=== PATIENT | female | born 1950 | race Caucasian/White ===

== ENCOUNTER 2016-10-13 10:02 | Emergency (ER) | payer MEDICARE, OTHER ==
[~2016-10-13] VITALS: Ht 165.1 cm; Wt 70.0 kg
[~2016-10-13 10:02] MED LIST: ALBU0.086 NEB; AMLO5TAB96 PO; ATOR20TA42 PO; CALC600T22 PO; CARB200T14 PO; CLON0.5T PO; CYAN100025 SQ; DIOV320T PO; FISH1000 PO; FISH100020 PO; HYDR200T42 PO; IMIT100T PO; LATA0.00 OP; LEVO150T7 PO; LOTE0.5S OU; MAGN250T19 PO; METF-324 PO; METO25 PO; NEUR600T PO; NORC7.5T PO; OMEP20TA PO; ONDA1TAB16 PO; PRED5PAK PO; REST0.05 OU; SERT-129 PO; SUMA6P SQ; SYMB160A INH; TIOT18I INH; TRAD5TAB PO; UMEC1INH; VENTAER INH; ZOLE5INJ
[2016-10-13 10:06] VITALS: BP 200/100; PULSE 85; RESP 17; TEMP 98; O2SAT 99
[2016-10-13] MEDS ORDERED: MORPHINE SULFATE 4 MG/ML INJ IM ONE (10:30)
--- NOTE | 2016-10-13 10:33 | PD ---
HPI Chief Complaint: Fall Time Seen by Provider: 10:22 Travel History International Travel<30 days: No Contact w/Intl Traveler<30days: No Traveled to known affect area: No History of Present Illness HPI 66 y/o female states she got tripped up on her bathtub edge and fell landing on her right shoulder and knee. She states she hit her head and is not sure if she blacked out. She states she's also having pain to her left knee in addition to the areas that she hit. Pain is pressure. Severity is moderate. Pain is worse with movement. She denies other concurrent complaints. This happened shortly prior to arrival. 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 Last one Jan 2011) Psychiatric: Yes Reproductive: No Respiratory: Yes Integumentary: No Migraines: Yes Myocardial Infarction: No Radiation Therapy: No Renal Failure: No Seizures: Yes Sickle Cell Disease: No Sleep Apnea: No Thyroid Disease: No Ulcer: Yes PNEUMOCCOCAL Vaccine (Year): 2 ?: Not Menopausal: Yes : 4 Para: 1 Miscarriage: 3 : 0 Ovarian Cysts: Yes Past Surgical History Abdominal Surgery: Yes (EXPLORATORY LAP X2) AICD: No Appendectomy: Yes Arteriovenous Shunt: No Body Medical Devices: Pins/plate in neck, pacemaker/cardiac loop Cardiac Surgery: Yes (HEART LOOP) Cholecystectomy: No Coronary Artery Bypass Graft: No Ear Surgery: Yes Endocrine Surgery: No Eye Surgery: No Genitourinary Surgery: Yes (KIDNEY STONE REMOVED) Gynecologic Surgery: No Insulin Pump: No Joint Replacement: No Neurologic Surgery: Yes Oral Surgery: No Pacemaker: No Thoracic Surgery: No Other Surgery: Yes (LOOP RECORDER , RIGHT WRIST, LUNG BIOSPY) Family History Family Myocardial Infarction: Yes Social History Alcohol Use: No Tobacco Use: No Substance Use: No (DENIES) Allergies-Medications (Allergen,Severity, Reaction): Coded Allergies: aspirin (Unverified Allergy, Severe, ITCH, 10/09/16) ciprofloxacin (Unverified Allergy, Severe, STOMACH PROBLEMS, 10/09/16) methotrexate (Unverified Allergy, Severe, "DESTROYED IMMUNE SYSTEM", ) norfloxacin (Unverified Allergy, Severe, HEADACHE, NAUSEA, DIARRHEA, ) penicillin G (Unverified Allergy, Severe, RASH, ITCH, 10/09/16) metronidazole (Unverified Adverse Reaction, Mild, 10/09/16) GI ISSUES Reported Meds & Prescriptions Reported Meds & Active Scripts Active Reported Ventolin Hfa 18 GM Inh (Albuterol Sulfate) 90 Mcg/Act Aer 1-2 Puff INH Q4-6H PRN Diovan (Valsartan) 160 Mg Tab 160 Mg PO DAILY Tradjenta (Linagliptin) 5 Mg Tab 5 Mg PO DAILY Symbicort Inh (Budesonide/Formoterol Fumarate) 160-4.5 Mcg/Act Aero 2 Puff INH Q12HR Imitrex Inj (Sumatriptan Succinate) 6 Mg/0.5 Ml Inj 6 Mg SQ AT ONSET PRN May repeat dose in 2 hour if needed. Max of 2 injections per day, no more than 2 days per week Imitrex (Sumatriptan Succinate) 100 Mg Tab 100 Mg PO AT ONSET PRN If a satisfactory response has not been obtained in 2 hours, a second dose may be administered Zoloft (Sertraline HCl) 100 Mg Tab 150 Mg PO DAILY Restasis Opth 0.05% (Cyclosporine Opth 0.05%) 0.05% Emul 1 Drop EACH EYE BID Prednisone 5 Mg Tab 5 Mg PO DAILY Zofran Odt (Ondansetron Odt) 4 Mg Tab 4 Mg SL Q6HR Omeprazole 20 Mg Tab 20 Mg PO DAILY Metoprolol Tartrate 25 Mg Tab 25 Mg PO BID Metformin (Metformin HCl) 1,000 Mg Tab 1,000 Mg PO BID With meals Levothyroxine (Levothyroxine Sodium) 150 Mcg Tab 150 Mcg PO DAILY Xalatan Opth Drops (Latanoprost) 0.005% Drops 1 Drop EACH EYE HS [Iron Complex] 1 Cap PO WEEKLY Incruse Ellipta Inh (Umeclidinium [place] Inh) 0.0625 Mg/Act Inh 1 Puff INH DAILY Plaquenil (Hydroxychloroquine Sulfate) 200 Mg Tab 200 Mg PO BID Take with food [place] (Hydrocodone-Acetaminophen) 7.5-325 mg Tab 1 Tab PO Q6H PRN Gabapentin 600 Mg Tab 900 Mg PO BID Fish Oil 1000 mg ([place]-3 Fatty Acids) 1 Cap Cap 1,000 Mg PO Q12HR Cyanocobalamin Inj (Cyanocobalamin) 1,000 Mcg/Ml Inj 1,000 Mcg IM MONTHLY Tegretol (Carbamazepine) 200 Mg Tab 300 Mg PO BID Lipitor (Atorvastatin Calcium) 40 Mg Tab 40 Mg PO DAILY Norvasc (Amlodipine Besylate) 10 Mg Tab 10 Mg PO DAILY Albuterol Neb (Albuterol Sulfate) 2.5 Mg/3 Ml Neb 2.5 Mg NEB Q4-6H PRN While awake Review of Systems Except as stated in HPI: all other systems reviewed are Neg Physical Exam Narrative General: 66 y/o patient in no apparent distress Skin: trauma noted to bilateral knees with abrasions Eyes: Pupils equal ENT: no septal hematoma NECK: no pain with palpation in midline, nexus criteria negative Cardiovascular: Regular rate and rhythm Respiratory: Normal respiratory effort noted, clear to auscultation bilaterally Abdomen: soft, nontender, nondistended Back: No step-offs, midline spine nontender with palpation Extremities: Pain with palpation of right upper arm, bilateral knees, no lacerations over, neurovascularly intact, no pain with palpation of other joints Neuro: awake, alert, sensation and motor grossly intact Data Data Last Documented VS Vital Signs Date Time Temp Pulse Resp B/P Pulse Ox O2 Delivery O2 Flow Rate FiO2 10/13/16 10:06 98.0 85 17 200/100 99 Orders Humerus (Min 2vws) (10/13/16 10:26) Knee, Complete (4vws) (10/13/16 10:26) Ct Brain W/O Iv Contrast(Rout) (10/13/16 ) Knee, Complete (4vws) (10/13/16 ) Morphine Inj (Morphine Inj) (10/13/16 10:30) Ct Cerv Spine W/O Contrast (10/13/16 ) Shoulder, Complete (>2vws) (10/13/16 ) MDM Medical Decision Making Medical Screen Exam Complete: Yes Emergency Medical Condition: Yes Medical Record Reviewed: Yes (past history confirmed) Interpretation(s) Last 24 hours Impressions Knee X-Ray 10/13/16 1026 Signed Impressions: Service Date/Time: Thursday, October 13, 2016 10:51 - CONCLUSION: Mild osteoarthritis. Questionable incomplete fracture proximal fibula. Gerson Corral MD Humerus X-Ray 10/13/16 1026 Signed Impressions: Service Date/Time: Thursday, October 13, 2016 10:43 - CONCLUSION: No acute fracture. Gerson Corral MD Knee X-Ray 10/13/16 0000 Signed Impressions: Service Date/Time: Thursday, October 13, 2016 10:48 - CONCLUSION: Mild osteoarthritis without fracture. Gerson Corral MD Cervical Spine CT 10/13/16 0000 Signed Impressions: Service Date/Time: Thursday, October 13, 2016 11:53 - CONCLUSION: Anterior fusion. No fracture or fracture. Minimal anterolisthesis C5 on C6. Diffuse mild degenerative changes. Gerson Corral MD Differential Diagnosis Fracture, strain, bleed Narrative Course Will check trauma imaging and dose with morphine and reevaluate ed workup without fracture, Patient denies any new complaints and states that they are feeling better. Patient happy with care, all questions answered. Patient knows that follow up is incumbent on them and to return to the emergency room immediately if new or worsening symptoms develop. Patient given strict return precautions, vitals reviewed and are normal, agrees to further workup as an outpatient. Diagnosis Primary Impression: Shoulder pain, acute Qualified Code: M25.511 - Acute pain of right shoulder Additional Impressions: Knee pain Qualified Code: M25.561 - Acute pain of both knees Fall Qualified Code: W19.XXXA - Fall, initial encounter Patient Instructions: General Instructions Additional Instructions: return as needed, follow with primary saturday, take your home pain medication as needed Med/Other Pt SpecificInfo: No Change to Meds Disposition: DISCHARGE HOME Condition: Stable Dona Lieberman MD Oct 13, 2016 10:33
--- NOTE | 2016-10-13 11:09 | RADRPT ---
EXAM DATE/TIME: 10/13/2016 10:43 [facility] COMPARISON: No previous studies available for comparison. INDICATIONS : Right arm pain after fall two days ago. MEDICAL HISTORY : Rheumatoid arthritis. SURGICAL HISTORY : None. ENCOUNTER: Initial ACUITY: 2 days PAIN SCORE: 5/10 LOCATION: Right humerus. FINDINGS: Two view examination of the right humerus demonstrates no evidence of fracture or dislocation. Bony mineralization is normal. The soft tissue structures are intact. CONCLUSION: No acute fracture. Gerson Corral MD on October 13, 2016 at 11:08 Board Certified Radiologist. This report was verified electronically.
--- NOTE | 2016-10-13 11:10 | RADRPT ---
EXAM DATE/TIME: 10/13/2016 10:48 [facility] COMPARISON: No previous studies available for comparison. INDICATIONS : Right knee pain after fall two days ago. MEDICAL HISTORY : Rheumatoid arthritis. SURGICAL HISTORY : None. ENCOUNTER: Initial ACUITY: 2 days PAIN SCORE: 5/10 LOCATION: Right knee. FINDINGS: Four view examination of the right knee demonstrates no evidence of fracture or dislocation. Mild ost eoarthritis. Bony mineralization is normal. The articular surfaces are intact. The suprapatellar so ft tissues have a normal configuration. CONCLUSION: Mild osteoarthritis without fracture. Gerson Corral MD on October 13, 2016 at 11:08 Board Certified Radiologist. This report was verified electronically.
--- NOTE | 2016-10-13 11:12 | RADRPT ---
EXAM DATE/TIME: 10/13/2016 10:51 [facility] COMPARISON: No previous studies available for comparison. INDICATIONS : Left knee pain after fall two days ago. MEDICAL HISTORY : Rheumatoid arthritis. SURGICAL HISTORY : ENCOUNTER: Initial ACUITY: 2 days PAIN SCORE: 10/10 LOCATION: Left knee. FINDINGS: Four view examination of the left knee demonstrates no evidence of fracture or dislocation. There is however questionable incomplete fracture proximal fibular shaft. Bony mineralization is normal. The articular surfaces are intact. The suprapatellar soft tissues have a normal configuration. CONCLUSION: Mild osteoarthritis. Questionable incomplete fracture proximal fibula. Gerson Corral MD on October 13, 2016 at 11:09 Board Certified Radiologist. This report was verified electronically.
[2016-10-13] MEDS ORDERED: METO25TA3 PO (11:42)
[2016-10-13] MEDS ORDERED: GABA600T PO (11:42)
[2016-10-13] MEDS ORDERED: VENTAER INH (11:42)
[2016-10-13] MEDS ORDERED: CYAN1000P IM (11:42)
[2016-10-13] MEDS ORDERED: ZOFR4TAB3 SL (11:42)
[2016-10-13] MEDS ORDERED: ZOLO100T PO (11:42)
[2016-10-13] MEDS ORDERED: ALBU0.08 NEB (11:42)
[2016-10-13] MEDS ORDERED: LATA.005%O EACH EYE (11:42)
[2016-10-13] MEDS ORDERED: OMEP20TA PO (11:42)
[2016-10-13] MEDS ORDERED: AMLO10 PO (11:42)
[2016-10-13] MEDS ORDERED: UMEC1INH INH (11:42)
[2016-10-13] MEDS ORDERED: IRONCAP2 PO (11:42)
[2016-10-13] MEDS ORDERED: TEGR200T PO (11:42)
[2016-10-13] MEDS ORDERED: LEVO150T7 PO (11:42)
[2016-10-13] MEDS ORDERED: HYDR-3288 PO (11:42)
[2016-10-13] MEDS ORDERED: LIPI40TA PO (11:42)
[2016-10-13] MEDS ORDERED: PRED5TAB PO (11:42)
[2016-10-13] MEDS ORDERED: FISH100020 PO (11:42)
[2016-10-13] MEDS ORDERED: METF1000 PO (11:42)
[2016-10-13] MEDS ORDERED: SYMB160A INH (11:42)
[2016-10-13] MEDS ORDERED: REST0.05 EACH EYE (11:42)
[2016-10-13] MEDS ORDERED: PLAQ200T PO (11:42)
[2016-10-13] MEDS ORDERED: DIOV160T6 PO (11:42)
[2016-10-13] MEDS ORDERED: TRAD5TAB PO (11:42)
[2016-10-13] MEDS ORDERED: SUMA6P SQ (11:42)
[2016-10-13] MEDS ORDERED: IMIT100T PO (11:42)
--- NOTE | 2016-10-13 12:28 | RADRPT ---
EXAM DATE/TIME: 10/13/2016 11:53 [place] Corrected on: October 13, 2016; [facility] COMPARISON: No previous studies available for comparison. INDICATIONS : Trauma, fall today. Neck pain. RADIATION DOSE: 23.14 CTDIvol (mGy) MEDICAL HISTORY : Stroke. Hypertension. Hepatitis B. SURGICAL HISTORY : Fusion, cervical. ENCOUNTER: Initial ACUITY: 1 day PAIN SCALE: 7/10 LOCATION: Bilateral neck TECHNIQUE: Volumetric scanning of the cervical spine was performed. Multiplanar reconstructions i n the sagittal, coronal and oblique axial planes were performed. Using automated exposure control a nd adjustment of the mA and/or kV according to patient size, radiation dose was kept as low as reason ably achievable to obtain optimal diagnostic quality images. DICOM format image data is available e lectronically for review and comparison. FINDINGS: VERTEBRAE: Normal vertebral body height. Anterior fusion plate C4-C6. ALIGNMENT: Minimal anterolisthesis C5 on C6. Degenerative changes C3-4 and C5-6 levels.. C2-C3: Small central protrusion abuts the ventral thecal sac without canal stenosis. The neural for ezio are bilaterally patent. C3-C4: Small posterior disc osteophyte complex without canal stenosis. The neural foramina are bilat erally patent. C4-C5: The bony spinal canal is normal in size. No evidence of disc bulge or herniation. The neura l foramina are bilaterally patent. C5-C6: The bony spinal canal is normal in size. No evidence of disc bulge or herniation. The neura l foramina are bilaterally patent. C6-C7: Small posterior disc osteophyte complex without canal stenosis. . The neural foramina are b ilaterally patent. C7-T1: The bony spinal canal is normal in size. No evidence of disc bulge or herniation. The neura l foramina are bilaterally patent. CONCLUSION: Anterior fusion. No fracture. Minimal anterolisthesis C5 on C6. Diffuse mild degenera tive changes. Gerson Corral MD on October 13, 2016 at 12:24 Board Certified Radiologist. This report was verified electronically. Gerson Corral MD on October 13, 2016 at 12:48 Board Certified Radiologist. This report was verified electronically.
--- NOTE | 2016-10-13 12:29 | RADRPT ---
EXAM DATE/TIME: 10/13/2016 11:53 [facility] COMPARISON: CT BRAIN W/O CONTRAST, April 13, 2015, 15:25. INDICATIONS : Trauma, fall today. Cephalgia. RADIATION DOSE: 34.97 CTDIvol (mGy) MEDICAL HISTORY : Stroke. Seizures. Hypertension. SURGICAL HISTORY : None. ENCOUNTER: Initial ACUITY: 1 day PAIN SCALE: 5/10 LOCATION: Bilateral head TECHNIQUE: Multiple contiguous axial images were obtained of the head. Using automated exposure control and adj ustment of the mA and/or kV according to patient size, radiation dose was kept as low as reasonably a chievable to obtain optimal diagnostic quality images. DICOM format image data is available electro nically for review and comparison. FINDINGS: CEREBRUM: The ventricles are normal for age. No evidence of midline shift, mass lesion, hemorrhage or acute in farction. No extra-axial fluid collections are seen. POSTERIOR FOSSA: The cerebellum and brainstem are intact. The 4th ventricle is midline. The cerebellopontine angle i s unremarkable. EXTRACRANIAL: The visualized portion of the orbits is intact. SKULL: The calvaria is intact. No evidence of skull fracture. CONCLUSION: No acute intracranial disease. Gerson Corral MD on October 13, 2016 at 12:27 Board Certified Radiologist. This report was verified electronically.
--- NOTE | 2016-10-13 12:32 | RADRPT ---
EXAM DATE/TIME: 10/13/2016 12:12 CORRECTION Corrected on: October 13, 2016; Encounter: Initial Acuity.: 3 days Pain score 7-10 Indication: Pain from fall on right side 2 views of the right shoulder demonstrates no acute fracture or dislocation. Old right-sided rib fra ctures. CONCLUSION: No acute fracture. Gerson Corral MD on October 13, 2016 at 12:30 Board Certified Radiologist. This report was verified electronically. Gerson Corral MD on October 13, 2016 at 12:48 Board Certified Radiologist. This report was verified electronically.
== END 2016-10-13 14:30 | disposition home or self-care (01) ==
LOC: NEPC 10:02
DX: M25.511 Pain in right shoulder (principal); M25.561 Pain in right knee; M25.562 Pain in left knee; I10 Essential (primary) hypertension; W18.2XXA Fall in (into) shower or empty bathtub, initial encounter; Y93.E1 Activity, personal bathing and showering; Y92.002 Bathroom of unspecified non-institutional (private) residence as the place of occurrence of the external cause; Z86.73 Personal history of transient ischemic attack (TIA), and cerebral infarction without residual deficits
CPT/HCPCS: 70450; 72125; 73030; 73060; 73564; 96372; 99285; J2270

== ENCOUNTER 2018-01-29 17:02 | Observation (INO) ==
[2018-01-29] MEDS ORDERED: Sod Chloride 0.9% Inj 1,000 ML IV.SIG ONE (19:05)
--- NOTE | 2018-01-29 19:30 | ED ---
HPI General Chief complaint: Weakness Stated complaint: Neuro Time Seen by Provider: 01/29/18 18:43 Source: patient Mode of arrival: ambulatory Limitations: no limitations History of Present Illness HPI Narrative: 67-year-old female with PMH of HTN, DM with neuropathy, epilepsy , COPD, ataxia presents to the ED via private vehicle for evaluation of 2 or 3 days history of increased weakness. She states that over the last few days she has been sleeping throughout most of the days. She states that her ataxia seems worse. She has had several falls. She complains of diffuse headache on presentation, rated 6/10, throbbing in quality. No alleviating or exacerbating factors reported. She denies dizziness or vision changes. She denies chest pain, palpitations, diaphoresis. She complains of worsening shortness of breath secondary to COPD. She endorses chronic nonproductive cough. She endorses decreased appetite. She states that her tongue is sore for the past few days. She notes that she has had loose stools for approximately 2 weeks. She denies melena or hematochezia. She states that she has had some changes to her medications in the last few weeks. She did receive this years flu vaccine. She is followed by Dr. Reina. Related Data Home Medications Medication Instructions Recorded Confirmed albuterol sulfate [Ventolin HFA] 1 puff INHALATION Q4-6H PRN 01/29/18 01/29/18 amlodipine 10 mg PO DAILY 01/29/18 01/29/18 aspirin 325 mg PO DAILY 01/29/18 01/29/18 atorvastatin 40 mg PO DAILY 01/29/18 01/29/18 carbamazepine 200 mg PO TID 01/29/18 01/29/18 cyclosporine [Restasis] 1 drp OPHTHALMIC (EYE) Q12H 01/29/18 01/29/18 gabapentin 600 mg PO BID 01/29/18 01/29/18 hydrocodone-acetaminophen [Petrolia] 1 tab PO Q6H 01/29/18 01/29/18 hydroxychloroquine 200 mg PO BID 01/29/18 01/29/18 latanoprost 1 drp OPHTHALMIC (EYE) QPM 01/29/18 01/29/18 levothyroxine 300 mcg PO DAILY 01/29/18 01/29/18 linagliptin [Tradjenta] 5 mg PO DAILY 01/29/18 01/29/18 losartan 100 mg PO DAILY 01/29/18 01/29/18 meclizine 25 mg PO TID 01/29/18 01/29/18 metformin 1,000 mg PO BID 01/29/18 01/29/18 metoprolol tartrate 25 mg PO BID 01/29/18 01/29/18 omeprazole 20 mg PO DAILY 01/29/18 01/29/18 prednisone 5 mg PO DAILY 01/29/18 01/29/18 sertraline 100 mg PO DAILY 01/29/18 01/29/18 umeclidinium [Incruse Ellipta] 1 inh INHALATION Q24H 01/29/18 01/29/18 Allergies Allergy/AdvReac Type Severity Reaction Status Date / Time aspirin Allergy Severe ITCH Verified 01/29/18 19:23 ciprofloxacin Allergy Severe STOMACH Verified 01/29/18 19:23 PROBLEMS methotrexate Allergy Severe "DESTROYED Verified 01/29/18 19:23 IMMUNE SYSTEM" norfloxacin Allergy Severe HEADACHE, Verified 01/29/18 19:23 NAUSEA, DIARRHEA penicillin G Allergy Severe RASH, ITCH Verified 01/29/18 19:23 metronidazole AdvReac Mild Abdominal Verified 01/29/18 19:23 Pain Review of Systems ROS: all other systems reviewed are negative PMFSH Social History Social History Substance History: No History of Abuse Second Hand Smoke Exposure: No Smoking Status: Never smoker Tobacco Type: Cigarettes How Often Do You Have a Drink Containing Alcohol: Never Recent Travel in [facility] within the Last 8 Weeks: No Recent Out of Country Travel within the Last 8 Weeks: No Immunization History Tetanus Immunization: Unsure Exam Narrative Exam Narrative: GENERAL: Well-nourished, well-developed white female in no acute distress. SKIN: Focused skin assessment pale, warm/dry. Several skin tears of the left forearm. No signs of infection. Ecchymosis on the right upper arm. Old in appearance. HEAD: Atraumatic. Normocephalic. EYES: Pupils equal and round. No scleral icterus. No injection or drainage. ENT: No nasal bleeding or discharge. Mucous membranes pink and dry. NECK: Trachea midline. No JVD. CARDIOVASCULAR: Regular rate and rhythm. No murmur appreciated. RESPIRATORY: No accessory muscle use. Poor air movement diffusely. Clear to auscultation. Breath sounds equal bilaterally. GASTROINTESTINAL: Abdomen soft, non-tender, nondistended. Hepatic and splenic margins not palpable. MUSCULOSKELETAL: No obvious deformities. No clubbing. No cyanosis. No edema. NEUROLOGICAL: Awake and alert. No obvious cranial nerve deficits. Motor grossly within normal limits. Normal speech. PSYCHIATRIC: Appropriate mood and affect; insight and judgment normal. Course Initial Documented Vital Signs Temperature 98.6 F 01/29/18 17:19 Pulse Rate 71 01/29/18 17:19 Respiratory Rate 20 01/29/18 17:19 Blood Pressure 138/74 01/29/18 17:19 Pulse Oximetry 99 01/29/18 17:19 Last Documented Vital Signs Temperature 97.8 F 01/30/18 00:00 Pulse Rate 84 01/30/18 00:00 Respiratory Rate 18 01/30/18 00:00 Blood Pressure 130/68 01/30/18 00:00 Pulse Oximetry 99 01/30/18 00:00 Medical Decision Making MDM Narrative Medical decision making narrative: Head CT without acute intracranial abnormalities.67-year-old female with PMH of HTN, DM with neuropathy, epilepsy, COPD, ataxia presents to the ED via private vehicle for evaluation of 2 or 3 days history of increased weakness and falls. She complains of diffuse headache on presentation. Patient is afebrile on presentation. O2 sats 99% on room air. Patient was administered 0.5 L normal saline. CBC with no leukocytosis or anemia. CMP with mild dehydration. BNP 306. EKG without acute changes. Troponin negative x1. CXR reveals mild streaky opacity, probable scarring and multiple chronic appearing right rib fractures. On recheck patient complains of headache and was administered 5 mg Petrolia which she takes at home. Given the patient's worsening ataxia and falls will admit for physical therapy evaluation. I spoke with Dr. Pacheco who is agreeable to this plan. Please see medicine notes for disposition. Medical Screen Exam Complete: Yes Emergency Medical Condition: Yes Differential Diagnosis Differential Diagnosis: UTI versus PNA versus COPD exacerbation versus metabolic derangement versus dehydration versus anemia versus ICH versus other Lab Data Result diagrams: 01/29/18 19:11 01/29/18 19:11 Lab Results 01/29/18 01/29/18 01/29/18 Range/Units 19:11 19:11 19:11 WBC 7.8 (4.0-11.0) th/mm3 RBC 4.26 (4.00-5.30) mil/mm3 Hgb 12.7 (11.6-15.3) gm/dL Hct 38.7 (35.0-46.0) % MCV 91.0 (80.0-100.0) fL MCH 29.8 (27.0-34.0) pg MCHC 32.7 (32.0-36.0) % RDW 13.1 (11.6-17.2) % Plt Count 180 (150-450) th/mm3 MPV 10.1 (7.0-11.0) fL Neut % (Auto) 63.6 (16.0-70.0) % Lymph % (Auto) 25.9 (9.0-44.0) % Isabella % (Auto) 6.6 (0.0-8.0) % Eos % (Auto) 3.4 (0.0-4.0) % Baso % (Auto) 0.5 (0.0-2.0) % Neut # (Auto) 4.9 (1.8-7.7) th/mm3 Lymph # (Auto) 2.0 (1.0-4.8) th/mm3 Isabella # (Auto) 0.5 (0.0-0.9) th/mm3 Eos # (Auto) 0.3 (0.0-0.4) th/mm3 Baso # (Auto) 0.0 (0.0-0.2) th/mm3 WBC Differential . Differential Comment Auto diff final Sodium 136 (136-145) meq/L Potassium 4.2 (3.5-5.1) meq/L Chloride 102 (98-107) meq/L Carbon Dioxide 28.7 (21.0-32.0) meq/L Anion Gap 5 (5-15) meq/L BUN 25 H (7-18) mg/dL Creatinine 1.18 H (0.50-1.00) mg/dL Estimated GFR 46 L (>89) mL/min POC Glucose (68-110) mg/dl Random Glucose 81 (74-106) mg/dL Calcium 8.6 (8.5-10.1) mg/dL Magnesium 2.4 (1.5-2.5) mg/dL Total Bilirubin 0.3 (0.2-1.0) mg/dL AST 15 (15-37) U/L ALT 16 (10-53) U/L Alkaline Phosphatase 68 (45-117) U/L Troponin I Less than 0.02 L (0.02-0.05) ng/mL B-Natriuretic Peptide 306 H (0-100) pg/mL Total Protein 7.5 (6.4-8.2) g/dL Albumin 3.7 (3.4-5.0) g/dL Urine Color (Yellw/Straw) Urine Clarity (Clear) Urine pH (5.0-8.5) Ur Specific [place] (1.002-1.035) Urine Protein (Neg-Trace) mg/dL Urine Glucose (UA) (Negative) mg/dL Urine Ketones (Negative) mg/dL Urine Occult Blood (Negative) Urine Nitrate (Negative) Urine Bilirubin (Negative) Urine Urobilinogen (Less than 2) mg/dL Ur Leukocyte Esterase (Negative) Urine RBC (0-3) /hpf Urine WBC (0-5) /hpf Ur Squamous Epith Cells (0-5) /hpf Urine Mucus (Occasional) /lpf Micro UA Comment Ur Microscopic Review Urine Culture Comments 01/29/18 01/29/18 01/29/18 Range/Units 19:12 22:27 23:46 WBC (4.0-11.0) th/mm3 RBC (4.00-5.30) mil/mm3 Hgb (11.6-15.3) gm/dL Hct (35.0-46.0) % MCV (80.0-100.0) fL MCH (27.0-34.0) pg MCHC (32.0-36.0) % RDW (11.6-17.2) % Plt Count (150-450) th/mm3 MPV (7.0-11.0) fL Neut % (Auto) (16.0-70.0) % Lymph % (Auto) (9.0-44.0) % Isabella % (Auto) (0.0-8.0) % Eos % (Auto) (0.0-4.0) % Baso % (Auto) (0.0-2.0) % Neut # (Auto) (1.8-7.7) th/mm3 Lymph # (Auto) (1.0-4.8) th/mm3 Isabella # (Auto) (0.0-0.9) th/mm3 Eos # (Auto) (0.0-0.4) th/mm3 Baso # (Auto) (0.0-0.2) th/mm3 WBC Differential Differential Comment Sodium (136-145) meq/L Potassium (3.5-5.1) meq/L Chloride (98-107) meq/L Carbon Dioxide (21.0-32.0) meq/L Anion Gap (5-15) meq/L BUN (7-18) mg/dL Creatinine (0.50-1.00) mg/dL Estimated GFR (>89) mL/min POC Glucose 78 87 (68-110) mg/dl Random Glucose (74-106) mg/dL Calcium (8.5-10.1) mg/dL Magnesium (1.5-2.5) mg/dL Total Bilirubin (0.2-1.0) mg/dL AST (15-37) U/L ALT (10-53) U/L Alkaline Phosphatase (45-117) U/L Troponin I (0.02-0.05) ng/mL B-Natriuretic Peptide (0-100) pg/mL Total Protein (6.4-8.2) g/dL Albumin (3.4-5.0) g/dL Urine Color Straw (Yellw/Straw) Urine Clarity Clear (Clear) Urine pH 6.0 (5.0-8.5) Ur Specific [place] 1.013 (1.002-1.035) Urine Protein Negative (Neg-Trace) mg/dL Urine Glucose (UA) Negative (Negative) mg/dL Urine Ketones Negative (Negative) mg/dL Urine Occult Blood Negative (Negative) Urine Nitrate Negative (Negative) Urine Bilirubin Negative (Negative) Urine Urobilinogen Less than 2 (Less than 2) mg/dL Ur Leukocyte Esterase Negative (Negative) Urine RBC Less than 1 (0-3) /hpf Urine WBC Less than 1 (0-5) /hpf Ur Squamous Epith Cells <1 (0-5) /hpf Urine Mucus Few H (Occasional) /lpf Micro UA Comment Culture not ind Ur Microscopic Review Not Reportable Urine Culture Comments Culture not ind Imaging Data Radiologist's impression: Chest X-Ray 01/29/18 19:05 CONCLUSION: 1. Mild streaky opacity and probable scarring. Patient has a history of pulmonary fibrosis. 2. Multiple chronic appearing right rib fractures. Head CT 01/29/18 19:05 CONCLUSION: 1. No acute intracranial abnormality. 2. Chronic white matter changes. . Discharge Plan Discharge Disposition Patient Disposition: ED Admit(ED Internal Use Only) Discharge Order Discharge Orders: ED Use Only Admit Order (Routine); Ordered 01/29/18 Ordered By: Lindsey Jones Physicians Team ED Provider: Yola Armijo ED Midlevel Provider: Lindsey Jones Primary Care Provider: Aj Reina Attending Provider: Darrion Tapia Status ED Status: Admitted Observation Patient
--- NOTE | 2018-01-29 19:40 | CT ---
EXAM DATE: 01/29/2018 7:37 PM EST AGE/SEX: 67 years / Female INDICATIONS: Frequent falls trouble walking, hit back of head CLINICAL DATA: This is the patient's initial encounter. Patient reports that signs and symptoms have been present for 1 day and indicates a pain score of 4/10. MEDICAL/SURGICAL HISTORY: Diabetes. None. RADIATION DOSE: 56.77 CTDI (mGy) COMPARISON: [facility] – [place], CT BRAIN W/O CONTRAST, 10/13/2016. . TECHNIQUE: CT of the head without contrast. Using automated exposure control and adjustment of the mA and/or kV according to patient size, radiation dose was kept as low as reasonably achievable to ob tain optimal diagnostic quality images. DICOM format image data is available electronically for revi ew and comparison. FINDINGS: Cerebrum: The ventricles are normal for age. No evidence of midline shift, mass lesion, hemorrhage or acute infarction. No extraaxial fluid collections are seen. Chronic low-attenuation seen in the p eriventricular white matter. Posterior Fossa: The cerebellum and brainstem are intact. The 4th ventricle is midline. The cerebe llopontine angle is unremarkable. Extracranial: The visualized portion of the orbits is intact. Skull: The calvaria is intact. No evidence of skull fracture. CONCLUSION: 1. No acute intracranial abnormality. 2. Chronic white matter changes. . Electronically signed by: Mauricio Suarez MD 01/29/2018 7:39 PM EST
--- NOTE | 2018-01-29 19:50 | XR ---
EXAM DATE: 01/29/2018 7:47 PM EST AGE/SEX: 67 years / Female INDICATIONS: Painful respirations. History of pulmonary fibrosis. CLINICAL DATA: This is the patient's initial encounter. Patient reports that signs and symptoms have been present for 1 day and indicates a pain score of 9/10. MEDICAL/SURGICAL HISTORY: Chronic obstructive pulmonary disease. . Right lung biopsy COMPARISON: No prior exams available for comparison. FINDINGS: A single AP view of the chest demonstrates the lungs to be symmetrically aerated without evidence of mass, consolidative infiltrate or effusion. There is mild streaky opacity and probable scarring. The cardiomediastinal contours are unremarkable. There are multiple chronic appearing right-sided rib fr actures. Overlying retrocardiac region leads are present. CONCLUSION: 1. Mild streaky opacity and probable scarring. Patient has a history of pulmonary fibrosis. 2. Multiple chronic appearing right rib fractures. Electronically signed by: Elian Nettles MD 01/29/2018 7:49 PM EST
[2018-01-29 19:56] LABS: Baso % (Auto) 0.5 % (0.0-2.0); Eos # (Auto) 0.3 th/mm3 (0.0-0.4); Eos % (Auto) 3.4 % (0.0-4.0); Hematocrit 38.7 % (35.0-46.0); Hemoglobin 12.7 gm/dL (11.6-15.3); Lymph % (Auto) 25.9 % (9.0-44.0); Mean Corpuscular HGB Conc 32.7 % (32.0-36.0); Mean Corpuscular Hemoglobin 29.8 pg (27.0-34.0); Mean Platelet Volume 10.1 fL (7.0-11.0); Mono # (Auto) 0.5 th/mm3 (0.0-0.9); Mono % (Auto) 6.6 % (0.0-8.0); Neut # (Auto) 4.9 th/mm3 (1.8-7.7); Neut % (Auto) 63.6 % (16.0-70.0); Platelet Count 180 th/mm3 (150-450); Red Blood Count 4.26 mil/mm3 (4.00-5.30); Red Cell Distribution Width 13.1 % (11.6-17.2); White Blood Count 7.8 th/mm3 (4.0-11.0)
[2018-01-29 20:05] LABS: Bilirubin,Urine Negative (Negative); Clarity,Urine Clear (Clear); Color,Urine Straw (Yellw/Straw); Glucose,Urine (UA) Negative (Negative); Leukocyte Esterase,Urine Negative (Negative); Mucus,Urine Few /lpf (Occasional); Nitrite,Urine Negative (Negative); Specific Gravity,Urine 1.013 (1.002-1.035); Squamous Epithelial Cell,Urine <1 /hpf (0-5)
[2018-01-29 20:23] LABS: Albumin 3.7 g/dL (3.4-5.0); Anion Gap 5 meq/L (5-15); Aspartate Aminotransferase 15 U/L (15-37); Blood Urea Nitrogen 25 mg/dL (7-18); Calcium 8.6 mg/dL (8.5-10.1); Carbon Dioxide 28.7 meq/L (21.0-32.0); Chloride 102 meq/L (98-107); Glomerular Filtration Rate 46 mL/min (>89); Glucose,Random 81 mg/dL (74-106); Magnesium 2.4 mg/dL (1.5-2.5); Potassium 4.2 meq/L (3.5-5.1); Sodium 136 meq/L (136-145)
[2018-01-29 20:24] LABS: Alanine Aminotransferase 16 U/L (10-53)
[2018-01-29 20:27] LABS: Alkaline Phosphatase 68 U/L (45-117); Total Protein 7.5 g/dL (6.4-8.2)
[2018-01-29] MEDS ORDERED: Acetaminophen 325 MG Tablet PO ONE (20:50)
[2018-01-29] MEDS ORDERED: CYCLOSPORINE EACH EYE SCH (22:15)
[2018-01-29] MEDS ORDERED: Acetaminophen 325 MG Tablet PO PRN (22:19)
[2018-01-29] MEDS ORDERED: Dextrose 50% in Water 50 ML Vial IV.PUSH PRN (22:24)
--- NOTE | 2018-01-29 22:37 | P.HP ---
[facility] of [facility] Illness [facility]: Aj Reina Chief Complaint: Weakness to lower extremities ataxia History of Present Illness: 67-year-old female with PMH of HTN, DM with neuropathy, epilepsy, COPD, ataxia presents to the ED via private vehicle for evaluation of 2 or 3 days history of increased weakness ,especially to lower extremities. She states that over the last few days she has been sleeping throughout most of the days. She states that her ataxia seems worse. She has had several falls. She complains of diffuse headache on presentation, rated 6/10, throbbing in quality. No alleviating or exacerbating factors reported. She denies dizziness or vision changes. She denies chest pain, palpitations, diaphoresis. She complains of worsening shortness of breath secondary to COPD. She endorses chronic nonproductive cough but has known pulmonary fibrosis. She endorses decreased appetite. She states that her tongue is sore for the past few days. She notes that she has had loose stools for approximately 2 weeks. She denies melena or hematochezia. She states that she has had some changes to her medications in the last few weeks. In the emergency room lab.lab work did show some mild dehydration and there is some generalized weakness to the lower extremities will admit for physical therapy evaluation will get MRI of the brain in view of the headaches and the initial presentation of weakness to the lower extremities , CT of the head was done which was unremarkable chest x-ray electrocardiogram showed no acute changes . - Diagnosis (1) Weakness (2) Ataxia (3) Diabetic neuropathy (4) Hypertension Review of Systems All other systems reviewed negative except as stated in [facility] - History History Provided By: Patient - Medical History Medical History: Medical History (Last Reviewed 01/29/18 @ 22:30 by Arie Pacheco MD) Diabetes Epilepsy - Tobacco History Tobacco Use In Past 30 Days: Yes Smoking Status: Never smoker Tobacco Type: Cigarettes - Alcohol History How Often Do You Have a Drink Containing Alcohol: Unable to Obtain - Travel History Recent Travel in the [place] Within the Last 8 Weeks: No Recent Travel Out of the Country Within the Last 8 Weeks: No - Immunization History Tetanus Immunization: Unsure Medications and Allergies Active Medications: Active Medications Acetaminophen (Tylenol) 650 mg PO Q4H PRN PRN Reason: Temp > 100.4 Hydrocodone Bitart/Acetaminophen ([place] 7.5/325) 1 tab PO Q6H [facility], [facility] Last Admin: 01/29/18 22:23 Dose: Not Given Amlodipine Besylate (Norvasc) 10 mg PO DAILY [facility], [facility] Aspirin (Aspirin) 325 mg PO DAILY [facility], [facility]1983 Atorvastatin Calcium (Lipitor) 40 mg PO DAILY [facility], [facility]1983 Carbamazepine (Tegretol) 200 mg PO TID [facility], [facility]1983 Dextrose (D50w Vial) 50 ml IV.PUSH UNSCH PRN PRN Reason: PER HYPOGLYCEMIA PROTOCOL Glucagon (Glucagon Inj) 1 mg OTHER PRN PRN PRN Reason: for Hypoglycemia Protocol Hydroxychloroquine Sulfate (Plaquenil) 200 mg PO BID [facility], [facility] Insulin Aspart (Novolog Insulin Correctional Sugar Inj) 0 unit SQ Q6HR [facility], [facility]; Protocol Latanoprost (Xalatan 0.005% Opth Drops) drop EACH EYE QPM [facility], [facility]1983 Levothyroxine Sodium (Synthroid) 300 mcg PO DAILY [facility]1983 Meclizine HCl (Antivert) 25 mg PO TID [facility]1983 Metoprolol Tartrate (Lopressor) 25 mg PO BID [facility]1983 Non-Formulary Medication (Albuterol Sulfate) 1 puff INHALATION Q4-6H PRN PRN Reason: Wheezing Non-Formulary Medication (Cyclosporine [Restasis]) 1 drp EACH EYE Q12H [facility] Non-Formulary Medication (Gabapentin [Gabapentin]) 600 mg PO BID [place] Non-Formulary Medication (Losartan [Losartan]) 100 mg PO DAILY [facility] Non-Formulary Medication (Metformin [Metformin]) 1,000 mg PO BID [facility] Non-Formulary Medication (Omeprazole [Omeprazole]) 20 mg PO DAILY [facility] Non-Formulary Medication (Umeclidinium [Incruse Ellipta]) 1 inh INHALATION Q24H [facility], [facility]1983 Non-Formulary Medication (Linagliptin [Tradjenta]) 5 mg PO DAILY [facility]1983 Ondansetron HCl (Zofran Inj) 4 mg IV.PUSH Q6H PRN PRN Reason: NAUSEA OR VOMITING Prednisone (Deltasone) 5 mg PO DAILY [facility] Senna/Docusate Sodium (Diane-Colace) 1 tab PO BID [facility]1983 Sertraline HCl (Zoloft) 100 mg PO DAILY [facility]1983 Sodium Chloride (Ns Flush) 2 ml IV.FLUSH PRN PRN PRN Reason: FLUSH AFTER USING IV ACCESS Sodium Chloride (Ns Flush) 2 ml IV.FLUSH BID [facility] Sodium Chloride (Ns Flush) 2 ml IV.FLUSH PRN PRN PRN Reason: FLUSH AFTER USING IV ACCESS Allergies Allergy/AdvReac Type Severity Reaction Status Date / Time aspirin Allergy Severe ITCH Verified 01/29/18 19:23 ciprofloxacin Allergy Severe STOMACH Verified 01/29/18 19:23 PROBLEMS methotrexate Allergy Severe "DESTROYED Verified 01/29/18 19:23 IMMUNE SYSTEM" norfloxacin Allergy Severe HEADACHE, Verified 01/29/18 19:23 NAUSEA, DIARRHEA penicillin G Allergy Severe RASH, ITCH Verified 01/29/18 19:23 metronidazole AdvReac Mild Abdominal Verified 01/29/18 19:23 Pain Home Medications Medication Instructions Recorded Confirmed Type albuterol sulfate [Ventolin HFA] 1 puff INHALATION Q4-6H PRN 01/29/18 01/29/18 History amlodipine 10 mg PO DAILY 01/29/18 01/29/18 History aspirin 325 mg PO DAILY 01/29/18 01/29/18 History atorvastatin 40 mg PO DAILY 01/29/18 01/29/18 History carbamazepine 200 mg PO TID 01/29/18 01/29/18 History cyclosporine [Restasis] 1 drp OPHTHALMIC (EYE) Q12H 01/29/18 01/29/18 History gabapentin 600 mg PO BID 01/29/18 01/29/18 History hydrocodone-acetaminophen [[place]] 1 tab PO Q6H 01/29/18 01/29/18 History hydroxychloroquine 200 mg PO BID 01/29/18 01/29/18 History latanoprost 1 drp OPHTHALMIC (EYE) QPM 01/29/18 01/29/18 History levothyroxine 300 mcg PO DAILY 01/29/18 01/29/18 History linagliptin [Tradjenta] 5 mg PO DAILY 01/29/18 01/29/18 History losartan 100 mg PO DAILY 01/29/18 01/29/18 History meclizine 25 mg PO TID 01/29/18 01/29/18 History metformin 1,000 mg PO BID 01/29/18 01/29/18 History metoprolol tartrate 25 mg PO BID 01/29/18 01/29/18 History omeprazole 20 mg PO DAILY 01/29/18 01/29/18 History prednisone 5 mg PO DAILY 01/29/18 01/29/18 History sertraline 100 mg PO DAILY 01/29/18 01/29/18 History umeclidinium [Incruse Ellipta] 1 inh INHALATION Q24H 01/29/18 01/29/18 History Exam Vital signs: Vital Signs 01/29/18 17:19 01/29/18 19:52 01/29/18 21:17 Temperature 98.6 F Pulse Rate 71 66 73 Respiratory Rate 20 18 18 Blood Pressure 138/74 Pulse Oximetry 99 94 L 01/29/18 21:18 Temperature Pulse Rate Respiratory Rate Blood Pressure 129/72 Pulse Oximetry Intake & Output 01/29/18 01/29/18 01/30/18 06:59 18:59 06:59 Intake Total 1000 / 1000 Balance 1000 / 1000 Weight 77.111 kg Intake: IV 1000 / 1000 NS Inj 1,000 ML @ Wide Open IV. 1000 / 1000 SIG BOLUS ONE Rx#:[id number] Narrative: GENERAL: SKIN: Warm and dry. HEAD: Normocephalic. EYES: No scleral icterus. No injection or drainage. NECK: Supple, trachea midline. No JVD or lymphadenopathy. CARDIOVASCULAR: Regular rate and rhythm without murmurs, gallops, or rubs. RESPIRATORY: Breath sounds equal bilaterally. No accessory muscle use. GASTROINTESTINAL: Abdomen soft, non-tender, nondistended. MUSCULOSKELETAL: No cyanosis, or edema. BACK: Nontender without obvious deformity. No CVA tenderness.neuoro-CN 2-12 intact no current motor or sensory findings Results - Labs CBC & Chem 7: 01/29/18 19:11 01/29/18 19:11 Labs: Laboratory Results - last 24 hr 01/29/18 01/29/18 01/29/18 19:11 19:11 19:11 WBC 7.8 RBC 4.26 Hgb 12.7 Hct 38.7 MCV 91.0 MCH 29.8 MCHC 32.7 RDW 13.1 Plt Count 180 MPV 10.1 Neut % (Auto) 63.6 Lymph % (Auto) 25.9 [place] % (Auto) 6.6 Eos % (Auto) 3.4 Baso % (Auto) 0.5 Neut # (Auto) 4.9 Lymph # (Auto) 2.0 [place] # (Auto) 0.5 Eos # (Auto) 0.3 Baso # (Auto) 0.0 WBC Differential . Differential Comment Auto diff final Sodium 136 Potassium 4.2 Chloride 102 Carbon Dioxide 28.7 Anion Gap 5 BUN 25 H Creatinine 1.18 H Estimated GFR 46 L Random Glucose 81 Calcium 8.6 Magnesium 2.4 Total Bilirubin 0.3 AST 15 ALT 16 Alkaline Phosphatase 68 Troponin I Less than 0.02 L B-Natriuretic Peptide 306 H Total Protein 7.5 Albumin 3.7 Urine Color Urine Clarity Urine pH Ur Specific [place] Urine Protein Urine Glucose (UA) Urine Ketones Urine Occult Blood Urine Nitrate Urine Bilirubin Urine Urobilinogen Ur Leukocyte Esterase Urine RBC Urine WBC Ur Squamous Epith Cells Urine Mucus Micro UA Comment Ur Microscopic Review Urine Culture Comments 01/29/18 19:12 WBC RBC Hgb Hct MCV MCH MCHC RDW Plt Count MPV Neut % (Auto) Lymph % (Auto) [place] % (Auto) Eos % (Auto) Baso % (Auto) Neut # (Auto) Lymph # (Auto) [place] # (Auto) Eos # (Auto) Baso # (Auto) WBC Differential Differential Comment Sodium Potassium Chloride Carbon Dioxide Anion Gap BUN Creatinine Estimated GFR Random Glucose Calcium Magnesium Total Bilirubin AST ALT Alkaline Phosphatase Troponin I B-Natriuretic Peptide Total Protein Albumin Urine Color Straw Urine Clarity Clear Urine pH 6.0 Ur Specific [place] 1.013 Urine Protein Negative Urine Glucose (UA) Negative Urine Ketones Negative Urine Occult Blood Negative Urine Nitrate Negative Urine Bilirubin Negative Urine Urobilinogen Less than 2 Ur Leukocyte Esterase Negative Urine RBC Less than 1 Urine WBC Less than 1 Ur Squamous Epith Cells <1 Urine Mucus Few H Micro UA Comment Culture not ind Ur Microscopic Review Not Reportable Urine Culture Comments Culture not ind - Imaging Impressions Chest X-Ray 01/29/18 19:05 CONCLUSION: 1. Mild streaky opacity and probable scarring. Patient has a history of pulmonary fibrosis. 2. Multiple chronic appearing right rib fractures. Head CT 01/29/18 19:05 CONCLUSION: 1. No acute intracranial abnormality. 2. Chronic white matter changes. . Caprini VTE Risk Assessment Caprini VTE Risk Assessment: Moderate/High Risk (score >= 2) Caprini Risk Assessment Model: Point Value = 1 Point Value = 2 Point Value = 3 Point Value = 5 Age 41-60 Minor surgery BMI > 25 kg/m2 Swollen legs Varicose veins or History of unexplained or recurrent spontaneous Oral contraceptives or hormone replacement Sepsis (< 1 month) Serious lung disease, including pneumonia (< 1 month) Abnormal pulmonary function Acute myocardial infarction Congestive heart failure (< 1 month) History of inflammatory bowel disease Medical patient at bed rest Age 61-74 Arthroscopic surgery Major open surgery (> 45 min) Laparoscopic surgery (> 45 min) Malignancy Confined to bed (> 72 hours) Immobilizing plaster cast Central venous access Age >= 75 History of VTE Family history of VTE Factor V Leiden Prothrombin [id number] Lupus anticoagulant Anticardiolipin antibodies Elevated serum homocysteine Heparin-induced thrombocytopenia Other congenital or acquired thrombophilia Stroke (< 1 month) Elective arthroplasty Hip, pelvis, or leg fracture Acute spinal cord injury (< 1 month) Prophylaxis Regimen: Total Risk Factor Score Risk Level Prophylaxis Regimen 0-1 Low Early ambulation 2 Moderate Order ONE of the following: *Sequential Compression Device (SCD) *Heparin 5000 units SQ BID 3-4 Higher Order ONE of the following medications: *Heparin 5000 units SQ TID *Enoxaparin/Lovenox 40 mg SQ daily (WT < 150 kg, CrCl > 30 mL/min) *Enoxaparin/Lovenox 30 mg SQ daily (WT < 150 kg, CrCl > 10-29 mL/min) *Enoxaparin/Lovenox 30 mg SQ BID (WT < 150 kg, CrCl > 30 mL/min) AND/OR *Sequential Compression Device (SCD) 5 or more Highest Order ONE of the following medications: *Heparin 5000 units SQ TID (Preferred with Epidurals) *Enoxaparin/Lovenox 40 mg SQ daily (WT < 150 kg, CrCl > 30 mL/min) *Enoxaparin/Lovenox 30 mg SQ daily (WT < 150 kg, CrCl > 10-29 mL/min) *Enoxaparin/Lovenox 30 mg SQ BID (WT < 150 kg, CrCl > 30 mL/min) AND *Sequential Compression Device (SCD) Assessment and Plan - Assessment (1) Weakness Code(s): R53.1 - Weakness Status: Acute Plan: We will get physical therapy to evaluate patient's weakness seemed to be more located to the lower extremities and she did have a headache we will get an MRI for evaluation. (2) Ataxia Code(s): R27.0 - Ataxia, unspecified Status: Acute Plan: Difficult to say whether this ataxia is new or old it is mentioned in her past medical history but the patient says this is a new finding we will wait for physical therapy evaluation review the MRI may need neurology evaluation as well (3) Diabetic neuropathy Code(s): E11.40 - Type 2 diabetes mellitus with diabetic neuropathy, unspecified Status: Acute Plan: Continue her medications for diabetes and diabetic neuropathy and will add sliding scale (4) Hypertension Code(s): I10 - Essential (primary) hypertension Status: Acute Plan: Continue home medications for blood pressure - Plan Further plan as case develops and on review of MRI Code Status: Full Discussed Condition With: Patient
[2018-01-30] MEDS: Insulin NovoLOG Aspart Correctional Sugar Inj SQ SCH ×4 (01:00→18:40)
[2018-01-30] MEDS: Levothyroxine 150 MCG Tablet PO SCH (05:47)
[2018-01-30 08:21] LABS: Baso % (Auto) 0.7 % (0.0-2.0); Eos # (Auto) 0.5 th/mm3 (0.0-0.4); Eos % (Auto) 8.1 % (0.0-4.0); Hematocrit 32.3 % (35.0-46.0); Hemoglobin 10.8 gm/dL (11.6-15.3); Lymph % (Auto) 34.7 % (9.0-44.0); Mean Corpuscular HGB Conc 33.6 % (32.0-36.0); Mean Corpuscular Hemoglobin 30.9 pg (27.0-34.0); Mean Platelet Volume 9.8 fL (7.0-11.0); Mono # (Auto) 0.5 th/mm3 (0.0-0.9); Mono % (Auto) 8.3 % (0.0-8.0); Neut # (Auto) 2.8 th/mm3 (1.8-7.7); Neut % (Auto) 48.2 % (16.0-70.0); Platelet Count 131 th/mm3 (150-450); Red Blood Count 3.51 mil/mm3 (4.00-5.30); White Blood Count 5.9 th/mm3 (4.0-11.0)
[2018-01-30 08:42] LABS: Calcium 7.9 mg/dL (8.5-10.1); Carbon Dioxide 27.9 meq/L (21.0-32.0); Potassium 3.9 meq/L (3.5-5.1)
[2018-01-30] MEDS ORDERED: UMECLIDINIUM INH SCH (09:00)
[2018-01-30] MEDS: amLODIPine 10 MG Tablet PO SCH (09:25)
[2018-01-30] MEDS: Sertraline 100 MG Tablet PO SCH (09:25)
[2018-01-30] MEDS: Aspirin 325 MG Tablet PO SCH (09:25)
[2018-01-30] MEDS: Hydroxychloroquine 200 MG Tablet PO SCH ×2 (09:25→20:22)
[2018-01-30] MEDS: Metoprolol Tartrate 25 MG Tablet PO SCH ×2 (09:25→20:22)
[2018-01-30] MEDS: Gabapentin 300 MG Capsule PO SCH ×2 (09:25→20:21)
[2018-01-30] MEDS: carBAMazepine 200 MG Tablet PO SCH ×3 (09:26→18:37)
[2018-01-30] MEDS: Senna/Docusate Sodium 8.6/50 MG Tablet PO SCH ×2 (09:26→20:21)
[2018-01-30] MEDS: Pantoprazole Sodium 20 MG DR Tablet PO SCH (09:26)
[2018-01-30] MEDS: predniSONE 5 MG Tablet PO SCH (09:44)
--- NOTE | 2018-01-30 11:04 | P.PNIM ---
Subjective Interval history: Patient resting in bed feels stronger today then when she came in In further discussion with patient she had taken a [place] 1 hour prior to the onset of her weakness/symptoms Physical Exam Vital signs: Last Vital Signs Temp 97.9 F 01/30/18 08:00 Pulse 66 01/30/18 08:00 Resp 18 01/30/18 08:00 BP 129/60 01/30/18 08:00 Pulse Ox 96 01/30/18 08:00 Narrative: GENERAL: This is a well-nourished, well-developed patient, in no apparent distress. CARDIOVASCULAR: Regular rate and rhythm RESPIRATORY: Clear to auscultation. Breath sounds equal bilaterally. GASTROINTESTINAL: Abdomen soft, non-tender, nondistended. Normal active bowel sounds MUSCULOSKELETAL: Extremities without clubbing, cyanosis, or edema. NEURO: Alert & Oriented x4 to person, place, time, situation. Moves all ext x4 Results Labs CBC & Chem 7: 01/30/18 07:29 01/30/18 07:29 Assessment and Plan Assessment (1) Weakness: Code(s): R53.1 - Weakness Status: Acute (2) Ataxia: Code(s): R27.0 - Ataxia, unspecified Status: Acute (3) Diabetic neuropathy: Code(s): E11.40 - Type 2 diabetes mellitus with diabetic neuropathy, unspecified Status: Acute (4) Hypertension: Code(s): I10 - Essential (primary) hypertension Status: Acute Plan 67-year-old female with PMH of HTN, DM with neuropathy, epilepsy, COPD, ataxia presents to the ED via private vehicle for evaluation of 2 or 3 days history of increased weakness ,especially to lower extremities. She states that over the last few days she has been sleeping throughout most of the days. She states that her ataxia seems worse. She has had several falls. She complains of diffuse headache on presentation, rated 6/10, throbbing in quality. No alleviating or exacerbating factors reported. She denies dizziness or vision changes. She denies chest pain, palpitations, diaphoresis. She complains of worsening shortness of breath secondary to COPD. She endorses chronic nonproductive cough but has known pulmonary fibrosis. She endorses decreased appetite. She states that her tongue is sore for the past few days. She notes that she has had loose stools for approximately 2 weeks. She denies melena or hematochezia. She states that she has had some changes to her medications in the last few weeks. In the emergency room lab.lab work did show some mild dehydration and there is some generalized weakness to the lower extremities will admit for physical therapy evaluation will get MRI of the brain in view of the headaches and the initial presentation of weakness to the lower extremities , CT of the head was done which was unremarkable chest x-ray electrocardiogram showed no acute changes . Weakness physical therapy to evaluate patient's weakness seemed to be more located to the lower extremities and she did have a headache we will get an MRI for evaluation. B12 340, folate 3.8, RPR pending patient follow's with Dr. Gastelum outpatient - will need to to follow up after DC Ataxia - improving Difficult to say whether this ataxia is new or old it is mentioned in her past medical history but the patient says this is a new finding we will wait for physical therapy evaluation review the Head CT 01/29/18 1. No acute intracranial abnormality. 2. Chronic white matter changes. Head MRI 01/30/18 1. No acute intracranial abnormality. 2. Scattered areas of demyelination the cerebral and pontine white matter. These are nonspecific. They could be from small vessel ischemic change. Carotid Doppler Study 01/30/18 CONCLUSION: Mild plaque at the carotid bulb regions bilaterally without a significant stenosis seen on the grayscale images. However, there is mildly elevated peak systolic velocity in the right internal carotid artery and elevated ICA/CCA ratio on the right. An underlying stenosis cannot be excluded. This could be further evaluated with a CTA or MRA of the neck. CTA discussed with radiology no significant stenosis Diabetic neuropathy Continue her medications for diabetes and diabetic neuropathy and will add sliding scale Hypertension Continue home medications for blood pressure Patient was able to ambulate with PT 01/30/18 - PT recommending DC home with [facility] PT Will DC patient home in stable condition with [facility] PT, on a heart healthy diet with no activity restrictions No new medications Follow up with PCP and Dr. Gastelum Progress Note: Quality VTE Deep Vein Thrombosis/Pulmonary Embolism Present on Admission: No _ (1) Diabetic neuropathy Qualifiers: Diabetes mellitus complication detail: Diabetes mellitus type: (2) Hypertension Qualifiers: Hypertension type:
--- NOTE | 2018-01-30 11:53 | P.DCO ---
Diagnosis (1) Weakness: Status: Acute (2) Ataxia: Status: Acute (3) Diabetic neuropathy: Status: Acute (4) Hypertension: Status: Acute Physical Therapy Order: Evaluate and treat Home Health Nursing Order: Medical education, Diabetic education and Nursing assessment with vital signs Case Management Consult Case Management Consult-Home Health: Yes I have seen patient Laurel Rubio on 01/30/18. My clinical findings support the need for the requested home health care services because: Medication compliance is questionable and High risk of falls I certify that my clinical findings support that this patient is homebound because: Unsteady gait/balance _ (1) Diabetic neuropathy Qualifiers: Diabetes mellitus complication detail: Diabetes mellitus type: (2) Hypertension Qualifiers: Hypertension type:
--- NOTE | 2018-01-30 11:59 | MR ---
EXAM DATE: 01/30/2018 11:44 AM EST AGE/SEX: 67 years / Female INDICATIONS: . Abnormal gait. Lower extremity weakness. CLINICAL DATA: This is the patient's subsequent encounter. Patient reports that signs and symptoms h ave been present for 2 days and indicates a pain score of 0/10. MEDICAL/SURGICAL HISTORY: Diabetes. Chronic obstructive pulmonary disease. Hypertension. Fusi on, cervical. Loop recorder implant and removal. COMPARISON: [facility], MR BRAIN W AND W/O CONTRAST, 02/06/2017. . TECHNIQUE: Multiplanar, multisequence examination of the brain was performed without and with 7.5 ml Gadavist (gadobutrol) contrast as a single exam dose. FINDINGS: Cerebrum: The ventricles are normal for age. No evidence of midline shift, mass lesion, hemorrhage or acute infarction. No extraaxial fluid collections are seen. The pituitary gland and suprasellar cistern are normal in configuration. White Matter: There are scattered areas of increased signal seen in the cerebral white matter and po ntine white matter. Posterior Fossa: The cerebellum and brainstem are intact. The 4th ventricle is midline. The cerebel lopontine angle is unremarkable. The cerebellar tonsils are normal in position. Diffusion Imaging: No focal areas of restricted diffusion are seen. No evidence of acute infarction . Extracranial: The visualized portions of the orbits and paranasal sinuses are unremarkable. Post Contrast: No abnormal areas of parenchymal or dural enhancement. No evidence of blood-brain ba rrier breakdown. CONCLUSION: 1. No acute intracranial abnormality. 2. Scattered areas of demyelination the cerebral and pontine white matter. These are nonspecific. Th ey could be from small vessel ischemic change. Electronically signed by: Mauricio Arreaga MD 01/30/2018 11:57 AM EST
[2018-01-30] MEDS ORDERED: Gadobutrol PF 7.5 MMOL/7.5 ML Vial (for RAD) IV.SIG ONE (12:00)
--- NOTE | 2018-01-30 13:06 | US ---
EXAM DATE: 01/30/2018 12:55 PM EST AGE/SEX: 67 years / Female INDICATIONS: Weakness. CLINICAL DATA: This is the patient's initial encounter. Patient reports that signs and symptoms have been present for 2 days and indicates a pain score of 6/10. MEDICAL/SURGICAL HISTORY: Diabetes. Hypertension. Epilepsy. Ataxia. Pulmonary fibrosis. None. COMPARISON: No prior exams available for comparison. VELOCITY PARAMETERS: ICA/CCA Ratio: Right 2.5 , Left 1.9 ICA: Right 139.9 cm/sec, Left 127.8 cm/sec CCA: Right 55.9 cm/sec, Left 67.2 cm/sec ECA: Right 79.0 cm/sec, Left 98.3 cm/sec Vertebral: Right 56.8 cm/sec antegrade, Left 56.8 cm/sec antegrade FINDINGS: Right Carotid: Mild arteriosclerotic plaque is visualized.The waveforms are within normal limits. Th ere is mildly elevated peak systolic velocity in the right internal carotid artery and an elevated IC A/CCA ratio. Left Carotid: Mild arteriosclerotic plaque is visualized. The waveforms are within normal limits. Other: None. CONCLUSION: Mild plaque at the carotid bulb regions bilaterally without a significant stenosis seen o n the grayscale images. However, there is mildly elevated peak systolic velocity in the right interna l carotid artery and elevated ICA/CCA ratio on the right. An underlying stenosis cannot be excluded. This could be further evaluated with a CTA or MRA of the neck. Electronically signed by: Mauricoi Arreaga MD 01/30/2018 1:05 PM EST
[2018-01-30 14:37] LABS: Folate 3.8 ng/mL (3.1-17.5)
--- NOTE | 2018-01-30 17:37 | ECG ---
Date Performed: 01/29/2018 Time Performed: 19:19:20 PTAGE: 67 years EKG: Sinus rhythm NORMAL ECG INTERPRETATION BASED ON A DEFAULT AGE OF 40 YEARS PREVIOUS TRACING :04/13/2017 @17.32 Since the previous tracing, no significant change not ed DOCTOR: Flakita Jim Interpretating Date/Time 01/30/2018 17:35:33
[2018-01-30] MEDS ORDERED: Latanoprost 0.005% Opth Drops 2.5 ML Bottle EACH EYE SCH (18:00)
[2018-01-31] MEDS: Insulin NovoLOG Aspart Correctional Sugar Inj SQ SCH ×2 (01:42→06:28)
[2018-01-31 04:23] VITALS: RESP 18
[2018-01-31] MEDS: Levothyroxine 150 MCG Tablet PO SCH (06:28)
[2018-01-31 07:34] VITALS: BP 160/72; PULSE 63; TEMP 98; O2SAT 96
[2018-01-31] MEDS: Aspirin 325 MG Tablet PO SCH (08:46)
[2018-01-31] MEDS: carBAMazepine 200 MG Tablet PO SCH (08:46)
[2018-01-31] MEDS: amLODIPine 10 MG Tablet PO SCH (08:47)
[2018-01-31] MEDS: predniSONE 5 MG Tablet PO SCH (08:47)
[2018-01-31] MEDS: Pantoprazole Sodium 20 MG DR Tablet PO SCH (08:47)
[2018-01-31] MEDS: Gabapentin 300 MG Capsule PO SCH (08:47)
[2018-01-31] MEDS: Senna/Docusate Sodium 8.6/50 MG Tablet PO SCH (08:47)
[2018-01-31] MEDS: Hydroxychloroquine 200 MG Tablet PO SCH (08:47)
[2018-01-31] MEDS: Metoprolol Tartrate 25 MG Tablet PO SCH (08:47)
[2018-01-31] MEDS: Sertraline 100 MG Tablet PO SCH (08:48)
--- NOTE | 2018-01-31 10:06 | CT ---
EXAM DATE: 01/30/2018 5:16 PM EST AGE/SEX: 67 years / Female INDICATIONS: Abnormal ultrasound falls dizzy CLINICAL DATA: This is the patient's initial encounter. Patient reports that signs and symptoms have been present for 1 day and indicates a pain score of 3/10. MEDICAL/SURGICAL HISTORY: Diabetes. Epilepsy None. RADIATION DOSE: 10.82 CTDI (mGy) COMPARISON: [facility] – [place], CT CERVICAL SPINE W/O CONTRAST, 10/13/2016. . TECHNIQUE: Volumetric scanning was performed using a multirow detector CT scanner during bolus infus ion of 75 ml Omnipaque 350 (iohexol) nonionic water-soluble contrast as a single exam dose. The da ta was postprocessed with a variety of visualization algorithms including full-volume maximum intensi ty projection, multiplanar sliding thin-slab reformation, curved-planar reformation, and surface-rend ering techniques. Using automated exposure control and adjustment of the mA and/or kV according to p atient size, radiation dose was kept as low as reasonably achievable to obtain optimal diagnostic arnol lity images. DICOM format image data is available electronically for review and comparison. FINDINGS: Aortic Arch: Nonstandard two-vessel bovine type arch anatomy. Arch vessel origins are patent. Right Carotid: The common carotid artery is intact. Calcified plaque is the carotid bulb region wit hout a significant stenosis. The internal carotid artery lumen is smooth without stenosis. The ext ernal carotid artery is intact. Left Carotid: The common carotid artery is intact. Eccentric mixed calcified plaque in the distal bu lb extending to the origin of the internal carotid artery. Resultant less than 10% stenosis. Internal carotid arteries otherwise patent to the skull base.. The external carotid artery is intact. Vertebrals: The vertebral arteries have a symmetric diameter. No stenotic lesions are seen. Percent stenosis is calculated using the diameter of the stenotic region over the diameter of the nor mal distal internal carotid artery. CONCLUSION: 1. No significant carotid flow-limiting carotid stenosis. Increased systolic velocities noted on ult rasound may be due to vessel tortuosity. 2. Patent bilateral vertebral arteries. Electronically signed by: Kevin Villatoro MD 01/31/2018 10:05 AM EST
== END 2018-01-31 10:53 | disposition home health service (06) ==
LOC: NEDA 17:02 → NEPC 17:02 → NEPFCDU 22:56
PROVIDERS: ADMIT Hospitalist; ATTEND Hospitalist